=== PATIENT | female | born 1995 | race Caucasian/White ===

== ENCOUNTER 2019-08-31 16:07 | Outpatient (CLI) | payer BC ==
--- NOTE | 2019-08-31 17:16 | RAD ---
RIGHT FOOT THREE VIEWS: History: Right foot pain. FINDINGS: Tarsals appear unremarkable. The metatarsals appear intact. No evidence of stress fracture or periost eal reaction. The phalanges appear intact. IMPRESSION: No acute finding. If there is concern of stress fracture, further evaluation with MRI is suggested. POS: [facility]
== END 2019-08-31 16:08 | disposition home or self-care (01) ==
LOC: BICRAD 16:07
PROVIDERS: ATTEND Physician Assistant
DX: M79.671 Pain in right foot (principal)